=== PATIENT | female | born 1975 | race African-American/Black ===

== ENCOUNTER 2017-06-03 15:58 | Emergency (ER) | payer MEDICAID ==
[~2017-06-03] VITALS: Ht 162.6 cm; Wt 65.0 kg
[2017-06-03] MEDS ORDERED: TETANUS, DIPHTHERIA, PERTUSSIS VAC/PF 0.5ML (>7YR OLD) IM ONE (16:30)
[2017-06-03] MEDS ORDERED: SODIUM CHLORIDE 0.9% 1,000 ML IV ONE (16:30)
[2017-06-03] MEDS ORDERED: LIDOCAINE HCL 1%/EPI 1:200,000 30 ML VIAL MC ONE (16:30)
[2017-06-03 17:07] LABS: BASOPHILS % 0.6 % (0.0-2.0); EOSINOPHILS % 1.1 % (0.0-5.0); HEMATOCRIT. 38.1 % (36.0-48.0); HEMOGLOBIN. 12.5 g/dL (12.0-16.0); LYMPHOCYTES % 20.5 % (20.0-50.0); MEAN CORPUSCULAR HEMOGLOBIN 31.3 pg (28.0-32.0); MEAN CORPUSCULAR VOLUME 95.2 fL (81.0-99.0); MEAN PLATELET VOLUME 8.6 fl (7.4-10.4); MONOCYTES % 8.4 % (2.0-8.0); NEUTROPHILS % 69.4 % (40.0-76.0); PLATELET 238 x1000/uL (130-400); RED CELL DISTRIBUTION WIDTH 14.4 % (11.6-14.6)
[2017-06-03 17:27] LABS: HCG SCREEN NEGATIVE
[2017-06-03 17:37] LABS: CARBON DIOXIDE 26 mEq/L (21-32); CHLORIDE 99 mEq/L (98-107); TROPONIN I < 0.02 ng/mL (0.00-0.04)
[2017-06-03] MEDS ORDERED: KCL 10MEQ/50ML PREMIX 50 ML IV ONE (18:00)
[2017-06-03] MEDS ORDERED: POTASSIUM CHLORIDE 20MEQ TABLET SR PO ONE (18:00)
[2017-06-03 18:54] VITALS: BP 105/66
== END 2017-06-03 20:30 | disposition home or self-care (01) ==
LOC: ER 16:22
DX: S01.01XA Laceration without foreign body of scalp, initial encounter (principal); E86.0 Dehydration; E87.6 Hypokalemia; R55 Syncope and collapse; I95.9 Hypotension, unspecified; R05 Cough; F17.200 Nicotine dependence, unspecified, uncomplicated; Z98.51 Tubal ligation status; W22.8XXA Striking against or struck by other objects, initial encounter; Y93.89 Activity, other specified; Y99.8 Other external cause status; Y92.69 Other specified industrial and construction area as the place of occurrence of the external cause
CPT/HCPCS: 12002; 36415; 70450; 80048; 83735; 84484; 84703; 85025; 93005; 96361; 96365; 99285; J3480; J7030; X7700; Z7610; 90715